=== PATIENT | male | born 1990 | race American Indian/Alaskan Native ===

== ENCOUNTER 2021-02-11 14:56 | Emergency (ER) | payer OTHER ==
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
[2021-02-11 17:52] VITALS: BP 121/85
== END 2021-02-11 17:51 | disposition home or self-care (01) ==
LOC: ED 14:56
DX: S00.83XA Contusion of other part of head, initial encounter (principal); S00.81XA Abrasion of other part of head, initial encounter; H10.33 Unspecified acute conjunctivitis, bilateral; Y08.89XA Assault by other specified means, initial encounter; Y93.89 Activity, other specified; Y92.89 Other specified places as the place of occurrence of the external cause; Y99.8 Other external cause status
CPT/HCPCS: 70450; 70486; 99283